=== PATIENT | female | born 1960 | race African-American/Black ===

== ENCOUNTER 2017-05-30 06:35 | Outpatient (CLI) | payer OTHER | END 2017-05-30 06:36 | disposition home or self-care (01) | LOC: NM 06:35 | PROVIDERS: ATTEND Family Medicine | DX: R11.2 Nausea with vomiting, unspecified (principal) | CPT/HCPCS: 78264; A9541 ==

== ENCOUNTER 2017-06-09 14:49 | Emergency (ER) | payer OTHER ==
[2017-06-09 15:27] LABS: #Basophils 0.1 thou/uL (0.0-0.2); #Eosinphils 0.1 thou/uL (0.0-0.7); #Lymphocytes 3.6 thou/uL (1.20-3.40); #Monocytes 0.7 thou/uL (0.11-0.59); #Neutrophils 7.1 thou/uL (1.40-6.50); %Eosinophils 1.1 % (0.0-10.0); %Lymphocytes 30.9 % (21.0-51.0); Hematocrit 35.1 % (36.0-47.0); Mean Platelet Volume 5.8 fL (7.4-10.4); Red Blood Cell (RBC) Count 3.89 mill/uL (4.20-5.40); White Blood Cell (WBC) Count 11.7 thou/uL (4.8-10.8)
[2017-06-09 15:32] LABS: PTT 33.7 SEC (22.9-36.1); Prothrombin Time 12.8 SEC (12.0-14.7)
[2017-06-09 15:41] LABS: Lactic Acid - Sepsis 2.2 mmol/L (0.5-2.2)
--- NOTE | 2017-06-09 15:44 | RAD ---
CHEST 1 VIEW: HISTORY: Dyspnea. COMPARISON: Chest 1 view 04/28/17. FINDINGS: The lungs are clear. No pneumothorax or effusion. Cardiac silhouette and mediastinal contours are normal. IMPRESSION: No acute intrathoracic abnormality. POS: [facility]
[2017-06-09 15:45] LABS: ALT (SGPT) 11 U/L (8-55); AST (SGOT) 15 U/L (5-34); Alkaline Phosphatase 77 U/L (40-150); Anion Gap 16 mmol/L (10-20); BUN (Urea Nitrogen) 10 mg/dL (9.8-20.1); Bilirubin, Total 0.2 mg/dL (0.2-1.2); Calc. Creatinine Clearance 0 mL/min (70-130); Calcium 9.8 mg/dL (7.8-10.44); Carbon Dioxide 22 mmol/L (22-29); Chloride 104 mmol/L (98-107); Estimated GFR-MDRD 59; Globulin 3.7 g/dL (2.4-3.5); Lipase 29 U/L (8-78); Magnesium 2.2 mg/dL (1.6-2.6)
[2017-06-09 15:50] LABS: Troponin I Less than 0.010 ng/mL (< 0.028)
[2017-06-09] MEDS ORDERED: Lidocaine 1% (PF) 30 ML VIAL ONE (15:59)
[2017-06-09] MEDS ORDERED: Diazepam 10 MG/2 ML SYRINGE ONE (15:59)
[2017-06-09 16:51] LABS: Bilirubin Negative (Negative); Blood, Urine Negative (Negative); Glucose, Urine (Dipstick) Negative (Negative); Ketone, Urine Negative (Negative); Nitrite Negative (Negative); Protein, Urine (Dipstick) Negative (Neg-Trace); Urobilinogen 0.2 mg/dL (0.2-1.0)
== END 2017-06-09 16:58 | disposition home or self-care (01) ==
LOC: ERS 14:49
DX: L02.411 Cutaneous abscess of right axilla (principal); J44.9 Chronic obstructive pulmonary disease, unspecified; K21.9 Gastro-esophageal reflux disease without esophagitis; I10 Essential (primary) hypertension; M81.0 Age-related osteoporosis without current pathological fracture; M19.90 Unspecified osteoarthritis, unspecified site; F41.9 Anxiety disorder, unspecified; F31.9 Bipolar disorder, unspecified; G47.00 Insomnia, unspecified; F42.9 Obsessive-compulsive disorder, unspecified; Z87.891 Personal history of nicotine dependence; Z79.899 Other long term (current) drug therapy
CPT/HCPCS: 10060; 36415; 71010; 80053; 81003; 82553; 83605; 83690; 83735; 83880; 84484; 85025; 85610; 85730; 87070; 87077; 87186; 87205; 93005; 96361; 96374; J2001; J3360

== ENCOUNTER 2017-12-31 12:20 | Emergency (ER) | payer OTHER ==
[2017-12-31] MEDS ORDERED: methylPREDNISolone Sod Succ/PF 125 MG/2 ML VIAL ONE (13:36)
[2017-12-31] MEDS ORDERED: Acetaminophen 500 MG TAB ONE (13:36)
--- NOTE | 2017-12-31 14:14 | RAD ---
AP VIEW CHEST: Date: 12/31/17 INDICATION: History of cough. COMPARISON: Prior exam dated 06/09/17. FINDINGS: There are linear densities involving the right lung base, suspicious for atelectasis. No air space co nsolidation is evident. There is a calcified granuloma involving the right hilar region, which is sta ble. There is right total shoulder replacement projecting in the expected position. There is scattere d degenerative change. The aorta is tortuous. IMPRESSION: Mild right basilar atelectasis. No additional acute abnormality. POS: [facility]
== END 2017-12-31 14:53 | disposition home or self-care (01) ==
LOC: ERS 12:20
DX: J44.1 Chronic obstructive pulmonary disease with (acute) exacerbation (principal); J44.0 Chronic obstructive pulmonary disease with (acute) lower respiratory infection; J18.9 Pneumonia, unspecified organism; M19.90 Unspecified osteoarthritis, unspecified site; K21.9 Gastro-esophageal reflux disease without esophagitis; I10 Essential (primary) hypertension; M81.0 Age-related osteoporosis without current pathological fracture; F41.9 Anxiety disorder, unspecified; F31.9 Bipolar disorder, unspecified; F42.9 Obsessive-compulsive disorder, unspecified; G47.00 Insomnia, unspecified; Z87.891 Personal history of nicotine dependence
CPT/HCPCS: 71045; 94640; 96374; J2930

== ENCOUNTER 2018-01-07 14:46 | Outpatient (CLI) | payer OTHER ==
--- NOTE | 2018-01-07 16:14 | RAD ---
TWO VIEWS CHEST: Comparison: 07-04-15, 06-09-17 FINDINGS: Slight elongation of the aorta. Normal cardiac silhouette. Pulmonary vessels and hilum are normal. Co stophrenic angles are clear. No consolidation or mass. No pneumothorax or osseous abnormalities. Stab le calcified right hilar lymph node. Areas of scar/atelectasis in the middle lobe are noted. IMPRESSION: No acute cardiopulmonary process. No significant interval change. POS: [facility]
== END 2018-01-07 14:47 | disposition home or self-care (01) ==
LOC: RAD 14:46
PROVIDERS: ATTEND Family Medicine
DX: R09.89 Other specified symptoms and signs involving the circulatory and respiratory systems (principal)
CPT/HCPCS: 71046

== ENCOUNTER 2018-01-08 10:43 | Outpatient (CLI) | payer OTHER ==
[2018-01-08 12:49] LABS: Hemoglobin 10.8 g/dL (12.0-16.0); Mean Corpuscular HGB CONC 31.6 g/dL (32.0-36.0); Mean Corpuscular Hemoglobin 27.3 pg (27.0-31.0); Mean Corpuscular Volume 86.2 fl (81.0-99.0); Mean Platelet Volume 6.6 fL (7.4-10.4); Platelet Count 751 thou/uL (130-400); RBC Distribution Width 16.2 % (11.5-14.5); Red Blood Cell (RBC) Count 3.97 mill/uL (4.20-5.40); White Blood Cell (WBC) Count 9.9 thou/uL (4.8-10.8)
[2018-01-08 12:56] LABS: Prothrombin Time 13.6 SEC (12.0-14.7)
[2018-01-08 13:17] LABS: Bilirubin Negative (Negative); Blood, Urine Negative (Negative); Clarity CLEAR (Clear); Glucose, Urine (Dipstick) Negative (Negative); Leukocyte Small (Negative); Nitrite Negative (Negative); Protein, Urine (Dipstick) 30 mg/dL (Neg-Trace); Specific Gravity, Urine 1.023 (1.002-1.036); Urobilinogen 0.2 mg/dL (0.2-1.0)
[2018-01-08 13:20] LABS: Bacteria/HPF None Seen HPF (None Seen); Pathc Cast-AUWi Flag 1.16 (0-2.49)
[2018-01-08 13:20] LABS: Anion Gap 19 mmol/L (10-20); BUN (Urea Nitrogen) 13 mg/dL (9.8-20.1); Calc. Creatinine Clearance 0 mL/min (70-130); Calcium 9.9 mg/dL (7.8-10.44); Carbon Dioxide 20 mmol/L (22-29); Chloride 105 mmol/L (98-107); Estimated GFR-MDRD 51; Glucose 191 mg/dL (70-105); Potassium 3.9 mmol/L (3.5-5.1); Sodium 140 mmol/L (136-145)
[2018-01-08 13:44] LABS: Hyaline Casts/LPF 0-3 HYALINE CAST LPF (0-3 Hyaline); RBC/HPF 0-3 HPF (0-3)
--- NOTE | 2018-01-08 23:49 | EKG ---
Test Reason : Blood Pressure : / mmHG Vent. Rate : 102 BPM Atrial Rate : 102 BPM P-R Int : 144 ms QRS Dur : 132 ms QT Int : 388 ms P-R-T Axes : 064 -70 049 degrees QTc Int : 505 ms Sinus tachycardia Possible Left atrial enlargement Left axis deviation Right bundle branch block Abnormal ECG When compared with ECG of 09-JUN-2017 15:13, Right bundle branch block is now Present Confirmed by LISSETH AMARO, SDanny ([id number]) on 01/08/2018 11:49:26 PM Referred By: GAVIN Confirmed By:DR. Narayan MONTANEZ MD
== END 2018-01-08 10:44 | disposition home or self-care (01) ==
LOC: LABBT 10:43
PROVIDERS: ATTEND Orthopaedic Surgery
DX: Z01.818 Encounter for other preprocedural examination (principal); M75.102 Unspecified rotator cuff tear or rupture of left shoulder, not specified as traumatic; I45.10 Unspecified right bundle-branch block; R00.0 Tachycardia, unspecified
CPT/HCPCS: 80048; 81001; 85027; 85610; 86850; 86900; 86901; 87081; 93005; 93010

== ENCOUNTER 2018-02-11 11:22 | Outpatient (CLI) | payer OTHER ==
[2018-02-11 12:34] LABS: Hemoglobin 11.1 g/dL (12.0-16.0); Mean Corpuscular Hemoglobin 26.6 pg (27.0-31.0); Mean Corpuscular Volume 83.3 fL (78.0-98.0); Mean Platelet Volume 6.6 fL (7.4-10.4); Platelet Count 597 thou/uL (130-400); RBC Distribution Width 16.1 % (11.5-14.5); Red Blood Cell (RBC) Count 4.17 mill/uL (4.20-5.40); White Blood Cell (WBC) Count 6.1 thou/uL (4.8-10.8)
[2018-02-11 12:57] LABS: Anion Gap 13 mmol/L (10-20); BUN (Urea Nitrogen) 11 mg/dL (9.8-20.1); Calc. Creatinine Clearance 0 mL/min (70-130); Calcium 9.7 mg/dL (7.8-10.44); Carbon Dioxide 21 mmol/L (22-29); Chloride 107 mmol/L (98-107); Estimated GFR-MDRD 73; Glucose 82 mg/dL (70-105); Potassium 4.4 mmol/L (3.5-5.1); Sodium 137 mmol/L (136-145)
== END 2018-02-11 11:23 | disposition home or self-care (01) ==
LOC: LABBT 11:22
PROVIDERS: ATTEND Orthopaedic Surgery
DX: Z01.812 Encounter for preprocedural laboratory examination (principal); M19.012 Primary osteoarthritis, left shoulder; M75.102 Unspecified rotator cuff tear or rupture of left shoulder, not specified as traumatic
CPT/HCPCS: 80048; 85027; 86850; 86900; 86901; 87081

== ENCOUNTER 2018-07-18 12:00 | Inpatient (IN) | payer OTHER ==
[2018-07-18 12:47] VITALS: BMI 30.2
[2018-07-23] MEDS ORDERED: CEFAZOLIN 2 GM/50 ML BAG ONE (10:16)
[2018-07-23] MEDS ORDERED: Lidocaine 2% Jelly 5 ML TUBE ONE (10:40)
[2018-07-23] MEDS ORDERED: Midazolam HCl 2 mg/2 ml Vial ONE (10:42)
[2018-07-23] MEDS ORDERED: Fentanyl 100 MCG/2 ML VIAL ONE ×3 (10:42→14:16)
[2018-07-23] MEDS ORDERED: Phenylephrine HCL 10 MG/ML VIAL ONE (10:45)
[2018-07-23] MEDS ORDERED: Zolpidem Tartrate 5 MG TAB PO PRN ×2 (11:29→15:19)
[2018-07-23] MEDS ORDERED: Ropivacaine 0.2% 550 ML 550 ML NERVE BLCK SCH (11:29)
[2018-07-23] MEDS ORDERED: HYDROcodone/Acetaminophen 10/325 mg Tablet PO PRN ×3 (11:29→15:19)
[2018-07-23] MEDS ORDERED: traMADol HCl 50 MG TAB PO PRN ×4 (11:29→15:19)
[2018-07-23] MEDS ORDERED: Promethazine HCl 25 MG/ML VIAL IM PRN ×2 (11:29→13:25)
[2018-07-23] MEDS ORDERED: Fentanyl 100 MCG/2 ML VIAL IV PRN (11:30)
[2018-07-23] MEDS ORDERED: SUGAMMADEX SODIUM 500 MG/5 ML VIAL ONE (13:04)
[2018-07-23] MEDS ORDERED: Promethazine HCl 25 MG/ML VIAL SLOW IVP PRN (13:25)
[2018-07-23] MEDS ORDERED: Ondansetron HCl/PF 4 MG/2 ML Vial IVP PRN (13:25)
[2018-07-23] MEDS ORDERED: Tranexamic Acid 1,000 MG in Sodium Chloride 0.9% 100 ML IVPB SCH (13:30)
[2018-07-23] MEDS ORDERED: traZODone HCl 150 MG TAB PO PRN (13:58)
[2018-07-23] MEDS ORDERED: PROVENTIL INHALER 6.7 G (200 INHALATIONS) INH PRN (14:03)
[2018-07-23] MEDS ORDERED: Acetaminophen 500 MG TAB PO PRN (14:03)
[2018-07-23] MEDS ORDERED: diphenhydrAMINE 25 MG CAP PO PRN (14:05)
--- NOTE | 2018-07-23 14:41 | RAD ---
TWO VIEWS LEFT SHOULDER: Date: 07-23-18 History: Post-operative. Comparison: Chest x-ray, 07-18-18 FINDINGS: There has been interval post-surgical changes related to placement of a left glenohumeral prosthesis. Skin clips overlie the left shoulder. No hardware complication is appreciated. Subcutaneous emphysem a is seen about the shoulder related to recent post-operative changes. No dislocation or fracture is appreciated. IMPRESSION: Post-operative changes related to recent placement of glenohumeral prosthesis. POS: [facility]
[2018-07-23] MEDS ORDERED: Ondansetron PF 4 MG/2 ML Vial IVP PRN (15:19)
[2018-07-23] MEDS ORDERED: Acetaminophen 325 MG TAB PO PRN (15:19)
[2018-07-23] MEDS ORDERED: Milk Of Magnesia 30 ML UDCUP PO PRN (15:19)
[2018-07-23] MEDS ORDERED: Bisacodyl 10 MG SUPP PR PRN (15:19)
[2018-07-23] MEDS ORDERED: diphenhydrAMINE 50 MG CAP PO PRN (15:19)
[2018-07-23] MEDS ORDERED: Ondansetron ODT 4 MG TAB PO PRN (15:19)
[2018-07-23] MEDS ORDERED: Methocarbamol 1 GM/10 ML VIAL SLOW IVP PRN (15:19)
[2018-07-23] MEDS ORDERED: Ropivacaine 0.2% HCl/PF (40 MG/20 ML VIAL) ONE (15:40)
[2018-07-23] MEDS ORDERED: Ropivacaine 0.5% HCl/PF (150 MG/30 ML VIAL) ONE (15:40)
[2018-07-23] MEDS ORDERED: ePHEDrine/0.9% NaCl/PF SYRINGE 50 mg/10 ml ONE (16:00)
[2018-07-23] MEDS ORDERED: PROPOFOL 200 MG/20 ML VIAL ONE (16:00)
[2018-07-23] MEDS ORDERED: Ondansetron PF 4 MG/2 ML Vial ONE (16:00)
[2018-07-23] MEDS ORDERED: Glycopyrrolate 0.2 MG/ML 5 ML SYRINGE ONE (16:00)
[2018-07-23] MEDS ORDERED: PHENYLEPHRINE-NS 100 MCG/ML 10 ML SYRINGE ONE (16:00)
[2018-07-23] MEDS ORDERED: Dexamethasone 20 MG/5 ML VIAL ONE (16:00)
[2018-07-23] MEDS: HYDROcodone/Acetaminophen 10/325 mg Tablet PO PRN ×2 (16:34→22:09)
[2018-07-23] MEDS ORDERED: Calcium Carbonate 500 MG ChewTAB PO PRN (16:42)
[2018-07-23] MEDS: CEFAZOLIN 2 GM/50 ML BAG IVPB SCH (18:14)
[2018-07-23] MEDS: Mometasone/Formoterol 120 PUFF INHALER INH SCH (18:15)
[2018-07-23] MEDS: Dextrose 5 %-0.45 % NaCl 1,000 ML IV SCH (18:19)
[2018-07-23] MEDS: Amlodipine 10 MG TAB PO SCH (21:58)
[2018-07-23] MEDS: Famotidine 20 MG TAB PO SCH (21:58)
[2018-07-23] MEDS: Ondansetron PF 4 MG/2 ML Vial IVP PRN (21:58)
[2018-07-23] MEDS: Atorvastatin Calcium 20 MG TAB PO SCH (21:58)
[2018-07-23] MEDS: chlorproMAZINE HCl 25 MG TAB PO SCH (21:59)
[2018-07-23] MEDS ORDERED: Vancomycin HCl 1 GM in Premix Bag 1 BAG IVPB SCH (22:00)
[2018-07-24] MEDS: CEFAZOLIN 2 GM/50 ML BAG IVPB SCH (00:47)
[2018-07-24] MEDS: HYDROcodone/Acetaminophen 10/325 mg Tablet PO PRN ×5 (02:49→21:54)
[2018-07-24] MEDS: Methocarbamol 500 MG TAB PO PRN (06:32)
[2018-07-24] MEDS: Dextrose 5 %-0.45 % NaCl 1,000 ML IV SCH ×2 (06:33→16:45)
[2018-07-24] MEDS: Mometasone/Formoterol 120 PUFF INHALER INH SCH ×2 (07:22→18:23)
[2018-07-24] MEDS: Citalopram 10 MG TAB PO SCH (09:26)
[2018-07-24] MEDS: lamoTRIgine 100 MG TAB PO SCH (09:26)
[2018-07-24] MEDS: Famotidine 20 MG TAB PO SCH ×2 (09:26→20:21)
--- NOTE | 2018-07-24 09:41 | RAD ---
TWO VIEWS LEFT SHOULDER: History: Status post-operative. Increasing pain. FINDINGS: Re-demonstration of post-operative changes compatible with left shoulder arthroplasty. Alignment is n ear anatomic. No significant interval change. There appears to be chronic change involving the distal aspect of the left clavicle. IMPRESSION: Stable post-operative change. POS: [facility]
[2018-07-24] MEDS ORDERED: Ropivacaine 0.5% HCl/PF (150 MG/30 ML VIAL) ONE (16:22)
[2018-07-24] MEDS: Ondansetron PF 4 MG/2 ML Vial IVP PRN (18:50)
[2018-07-24] MEDS: Atorvastatin Calcium 20 MG TAB PO SCH (20:20)
[2018-07-24] MEDS: chlorproMAZINE HCl 25 MG TAB PO SCH (20:20)
[2018-07-24] MEDS: Amlodipine 10 MG TAB PO SCH (20:21)
[2018-07-25] MEDS: HYDROcodone/Acetaminophen 10/325 mg Tablet PO PRN ×4 (03:30→18:03)
[2018-07-25] MEDS: Mometasone/Formoterol 120 PUFF INHALER INH SCH (07:22)
[2018-07-25] MEDS: Citalopram 10 MG TAB PO SCH (08:49)
[2018-07-25] MEDS: Famotidine 20 MG TAB PO SCH (08:49)
[2018-07-25] MEDS: lamoTRIgine 100 MG TAB PO SCH (12:30)
--- NOTE | 2018-07-25 12:59 | OP ---
DATE OF PROCEDURE: 07/23/2018 PREOPERATIVE DIAGNOSIS: Left full-thickness supraspinatus and infraspinatus rotator cuff tear with failed repair. POSTOPERATIVE DIAGNOSIS: Left full-thickness supraspinatus and infraspinatus rotator cuff tear with failed repair. PROCEDURE PERFORMED: Left reverse shoulder arthroplasty. HAND POLISHER: Garrett Rios PA-C ANESTHESIOLOGIST: Dr. Cash. ANESTHESIA: The patient received general endotracheal with interscalene block. ESTIMATED BLOOD LOSS: 150 cc TOURNIQUET TIME: None. IMPLANTS: TOrnier 2B Flex stem with a 0 offset and a 36.6 mm Poly, a 25 mm standard base plate and a 36 x 25 mm standard Glenosphere and two locking and two non- locking screws. ANTIBIOTICS: Ancef 2 g and vancomycin 1 g, TXA 1 g. COMPLICATIONS: None. INDICATIONS FOR PROCEDURE: Ms. Reid is a 58-year-old female who presented with left shoulder pain. The patient had undergone a rotator cuff repair with continued pain. She was not cleared for superior capsular reconstruction and therefore elected to have a reverse shoulder arthroplasty. I discussed the risks and benefits, failure of the implant terminal operations manager, need for further surgeries, continued pain, decreased range of motion and strength of the left arm. She understood that the shoulder would not last potentially more than 10 years. She understood all these risks and benefits and elected to proceed. PROCEDURE IN DETAIL: After time-out was performed, the patient's left upper extremity was the operative site, based on site, consent, and markings, we made an incision in line of the deltopectoral interval, split the deltopectoral interval , came down and found the vein, deltoid and pectoralis took down the patient's subscapularis with a peel, brought the head and dislocated the head and no significant attachments superiorly left. We used a saw and in 20 degrees of external rotation, cut the humeral head. We broached up to size 2 and then placed our hubcap in position. We then everted and exposed the glenoid, we did 360 degrees of the glenoid labrum. The biceps was then tenotomized. After completion of this , we placed center guide inferior within the tear and then drilled a center hole. We then reamed off the cartilage and placed a 25 mm base plate inferiorly with screws, pressed into place, two anterior and posterior, and superior and inferior, they were slightly off the line axis. We debrided and ensured that the piriform was clean and placed our screw at a good screw fit with our standard size 36 x 25 mm standard head. We then moved back to humerus. We trialed and saw that she was still too long we had to make 3 more trials as we had to cut and downsize to help with the reduction, we used the high offset and tray, we were unable to get into place. After trial reduction, we then removed the implants, drilled and placed a 5-0 Ethibond, which she passed around the implant stem, which we impacted into place to reduce the shoulder. We sewed with number 5.[address] into place. We closed the deltopectoral interval. The vein had gotten cauterized and ligated, which we used some sutures to oversew and ensure its ligation from being side walled. We then closed the deltopectoral interval, we closed subcu and skin with anny. The patient will be admitted overnight. She just received 24-hour antibiotics, she received TXA. She will begin elbow, wrist, and hand motion. I will see her back in the morning and potentially discharged home next day. Job ID: [id number] [facility]
[2018-07-25] MEDS: Methocarbamol 500 MG TAB PO PRN (15:53)
[2018-07-25 16:08] VITALS: BP 126/71; TEMP 98.8
[2018-07-25] MEDS: Dextrose 5 %-0.45 % NaCl 1,000 ML IV SCH (19:43)
== END 2018-07-25 18:36 | disposition home or self-care (01) | DRG 483 ==
LOC: SURG A 07-23 09:33 → SJJU 07-23 15:19
PROVIDERS: ADMIT Orthopaedic Surgery; ATTEND Orthopaedic Surgery
PROC: 0RRK00Z Replacement of Left Shoulder Joint with Reverse Ball and Socket Synthetic Substitute, Open Approach (ICD-10-PCS; principal; 2018-07-23)
DX: M75.122 Complete rotator cuff tear or rupture of left shoulder, not specified as traumatic (principal); I10 Essential (primary) hypertension; F31.9 Bipolar disorder, unspecified; Z79.899 Other long term (current) drug therapy; K21.9 Gastro-esophageal reflux disease without esophagitis; G47.00 Insomnia, unspecified; I25.10 Atherosclerotic heart disease of native coronary artery without angina pectoris; E78.5 Hyperlipidemia, unspecified; J44.9 Chronic obstructive pulmonary disease, unspecified; Z86.14 Personal history of Methicillin resistant Staphylococcus aureus infection; F17.210 Nicotine dependence, cigarettes, uncomplicated; Z79.82 Long term (current) use of aspirin; Z79.891 Long term (current) use of opiate analgesic; Z88.6 Allergy status to analgesic agent; Z88.5 Allergy status to narcotic agent
CPT/HCPCS: A4306; C1713; G8978-GP-CK; G8979-GP-CJ; G8987-GO-CK; G8988-GO-CJ; J1100; J2250; J2370; J2405; J2550; J2704; J2795; J3010; J3370; Q0161

== ENCOUNTER 2018-07-18 12:20 | Outpatient (CLI) | payer OTHER ==
[2018-07-18 14:34] LABS: Hemoglobin 11.9 g/dL (12.0-16.0); Mean Corpuscular HGB CONC 32.3 g/dL (32.0-36.0); Mean Corpuscular Hemoglobin 28.2 pg (27.0-31.0); Mean Corpuscular Volume 87.3 fL (78.0-98.0); Mean Platelet Volume 6.8 fL (7.4-10.4); Platelet Count 495 thou/uL (130-400); RBC Distribution Width 15.5 % (11.5-14.5); Red Blood Cell (RBC) Count 4.23 mill/uL (4.20-5.40); White Blood Cell (WBC) Count 8.2 thou/uL (4.8-10.8)
--- NOTE | 2018-07-18 14:35 | EKG ---
Test Reason : Blood Pressure : / mmHG Vent. Rate : 071 BPM Atrial Rate : 071 BPM P-R Int : 170 ms QRS Dur : 114 ms QT Int : 430 ms P-R-T Axes : 059 -30 041 degrees QTc Int : 467 ms Normal sinus rhythm Possible Left atrial enlargement Left axis deviation Right bundle branch block Possible Anterior infarct , age undetermined Abnormal ECG When compared with ECG of 08-JAN-2018 11:06, Borderline criteria for Anterior infarct are now Present Nonspecific T wave abnormality has replaced inverted T waves in Anterior leads Confirmed by LISSETH AMARO, SDanny (4) on 07/18/2018 2:35:18 PM Referred By: GAVIN Confirmed By:DR. Narayan MONTANEZ MD
[2018-07-18 14:45] LABS: Prothrombin Time 13.1 SEC (12.0-14.7)
[2018-07-18 14:59] LABS: Anion Gap 11 mmol/L (10-20); BUN (Urea Nitrogen) 7 mg/dL (9.8-20.1); Calc. Creatinine Clearance 0 mL/min (70-130); Calcium 9.8 mg/dL (7.8-10.44); Carbon Dioxide 28 mmol/L (22-29); Chloride 103 mmol/L (98-107); Estimated GFR-MDRD 63; Glucose 90 mg/dL (70-105); Potassium 3.3 mmol/L (3.5-5.1); Sodium 139 mmol/L (136-145)
--- NOTE | 2018-07-18 15:11 | RAD ---
TWO VIEWS OF THE CHEST: COMPARISON: 01/07/2018. HISTORY: Preoperative radiograph. FINDINGS: Two views of the chest show normal sized cardiomediastinal silhouette. There is no evidence of consol idation, mass, or pleural effusion. The patient has a right shoulder prosthesis. IMPRESSION: No evidence of acute cardiopulmonary disease. POS: [facility]
== END 2018-07-18 12:21 | disposition home or self-care (01) ==
LOC: LABBT 12:20
PROVIDERS: ATTEND Orthopaedic Surgery
DX: Z01.818 Encounter for other preprocedural examination (principal); M75.122 Complete rotator cuff tear or rupture of left shoulder, not specified as traumatic
CPT/HCPCS: 71046; 80048; 85027; 85610; 87081; 93005; 93010

== ENCOUNTER 2019-02-12 10:58 | Emergency (ER) | payer OTHER ==
[2019-02-12] MEDS ORDERED: HYDROcodone/Acetaminophen 10/325 mg Tablet ONE (12:59)
--- NOTE | 2019-02-12 13:02 | RAD ---
EXAM: CHEST ONE VIEW: 02/12/19 HISTORY: Chest pain following injury from trauma. Bilateral reverse shoulder arthroplasty changes are noted. Heart size is normal. Old granulomatous di sease. No pneumothorax or pleural effusion or other acute process. IMPRESSION: No significant acute intrathoracic disease. Old granulomatous disease. Atherosclerosis of the aorta. Bilateral reversed shoulder arthroplasty changes. POS: [facility]
--- NOTE | 2019-02-12 13:26 | CT ---
CT BRAIN WITHOUT CONTRAST: HISTORY: Trauma, headache. FINDINGS: Comparison is made with the exam of 05/14/2007. FINDINGS: There are changes of chronic small-vessel ischemic disease. No evidence of acute infarct, hemorrhage , midline shift, or abnormal extraaxial fluid collections are seen. The ventricular size is appropri ate and the basilar cisterns patent. The bony calvarium is intact. The visualized paranasal sinuses and mastoid air cells are well aerated. IMPRESSION: No CT evidence of acute intracranial process. POS: [facility]
== END 2019-02-12 13:33 | disposition home or self-care (01) ==
LOC: ERS 10:58
DX: S20.219A Contusion of unspecified front wall of thorax, initial encounter (principal); S09.90XA Unspecified injury of head, initial encounter; K21.9 Gastro-esophageal reflux disease without esophagitis; I10 Essential (primary) hypertension; J44.9 Chronic obstructive pulmonary disease, unspecified; F41.9 Anxiety disorder, unspecified; F31.9 Bipolar disorder, unspecified; G47.00 Insomnia, unspecified; F42.9 Obsessive-compulsive disorder, unspecified; V43.52XA Car driver injured in collision with other type car in traffic accident, initial encounter; Z79.899 Other long term (current) drug therapy
CPT/HCPCS: 70450; 71045

== ENCOUNTER 2019-10-15 12:54 | Outpatient (CLI) | payer OTHER ==
--- NOTE | 2019-10-15 13:35 | MMO ---
Bilateral MAMMO Bilat Screen [facility]. CLINICAL HISTORY: Patient is 59 years old and is seen for screening. The patient has the following family history of breast cancer: maternal aunt, malignant (generic). The patient has no personal history of cancer. VIEWS: The views performed were: bilateral craniocaudal and bilateral mediolateral oblique. FILMS COMPARED: The present examination has been compared to a prior imaging study performed at [facility] on 01/23/2017. This study has been interpreted with the assistance of computer-aided detection. MAMMOGRAM FINDINGS: There are scattered fibroglandular densities. There are no suspicious masses, suspicious calcifications, or new areas of architectural distortion. IMPRESSION: THERE IS NO MAMMOGRAPHIC EVIDENCE OF MALIGNANCY. A ROUTINE FOLLOW-UP MAMMOGRAM IN 1 YEAR IS RECOMMENDED. ACR BI-RADS Category 1 - Negative MAMMOGRAPHY NOTE: 1. A negative mammogram report should not delay a biopsy if a dominant of clinically suspicious mass is present. 2. Approximately 10% to 15% of breast cancers are not detected by mammography. 3. Adenosis and dense breasts may obscure an underlying neoplasm. Reported by: LEOPOLDO DONIS MD Electonically Signed: [id number]
== END 2019-10-15 12:55 | disposition home or self-care (01) ==
LOC: BICMAMMO 12:54
PROVIDERS: ATTEND Physician Assistant
DX: Z12.31 Encounter for screening mammogram for malignant neoplasm of breast (principal); Z80.3 Family history of malignant neoplasm of breast
CPT/HCPCS: 77067

== ENCOUNTER 2020-06-03 09:19 | Outpatient (CLI) | payer OTHER ==
--- NOTE | 2020-06-03 12:08 | RAD ---
LUMBAR SPINE 2 VIEWS: Date: 06/03/2020 HISTORY: Lumbago with sciatica right side, low back pain. FINDINGS: Degenerative changes are present. No fracture, subluxation, or bony destruction is seen. IMPRESSION: Lumbar spondylosis. POS: [facility]
== END 2020-06-03 09:20 | disposition home or self-care (01) ==
LOC: BICRAD 09:19
PROVIDERS: ATTEND Physician Assistant
DX: M54.41 Lumbago with sciatica, right side (principal); M47.816 Spondylosis without myelopathy or radiculopathy, lumbar region
CPT/HCPCS: 36415; 72100; 80053; 80061; 81001; 85025

== ENCOUNTER 2020-08-05 11:15 | Emergency (ER) | payer OTHER | END 2020-08-05 13:34 | disposition left against medical advice (07) | LOC: ERS 11:15 | DX: Z53.21 Procedure and treatment not carried out due to patient leaving prior to being seen by health care provider (principal) ==

== ENCOUNTER 2024-08-07 13:19 | Outpatient (CLI) | payer OTHER | END 2024-08-07 13:20 | disposition home or self-care (01) | LOC: BICMAMMO 13:19 | PROVIDERS: ATTEND Internal Medicine | DX: Z12.31 Encounter for screening mammogram for malignant neoplasm of breast (principal); M85.89 Other specified disorders of bone density and structure, multiple sites; Z78.0 Asymptomatic menopausal state; Z80.3 Family history of malignant neoplasm of breast | CPT/HCPCS: 77063; 77067; 77080 ==